=== PATIENT | male | born 1990 | race Caucasian/White ===

== ENCOUNTER 2016-10-18 09:39 | Emergency (ER) | payer MEDICARE, MEDICAID ==
[~2016-10-18] VITALS: Ht 167.6 cm; Wt 100.0 kg
[~2016-10-18 09:39] MED LIST: AUGM875T PO; CARD30TA PO; CLON2TAB PO; CONC27TA2 OR; LEVO100T60 PO; SERO300T PO
[2016-10-18 09:44] VITALS: BP 144/91; PULSE 97; RESP 16; TEMP 98.6
[2016-10-18] MEDS ORDERED: oxyCODONE/ACETAMINOPHEN 5 MG/325 MG TAB PO ONE (10:00)
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
== END 2016-10-18 12:37 | disposition home or self-care (01) ==
LOC: NEPC 09:39
DX: T21.16XA Burn of first degree of male genital region, initial encounter (principal); F41.9 Anxiety disorder, unspecified; F32.9 Major depressive disorder, single episode, unspecified; I10 Essential (primary) hypertension; R56.9 Unspecified convulsions; X10.0XXA Contact with hot drinks, initial encounter
CPT/HCPCS: 99283